=== PATIENT | male | born 1980 | race Caucasian/White ===

== ENCOUNTER 2020-04-16 13:50 | Emergency (ER) | payer OTHER, SELFPAY ==
[2020-04-16 13:55] VITALS: BP 138/88; PULSE 81; RESP 14; TEMP 36.6; O2SAT 98; BMI 28.7
[2020-04-16 14:34] LABS: COVID19 -Nasal RAPID Negative (Negative)
--- NOTE | 2020-04-16 15:17 | PC.NURSE ---
given verbal consent to room with spouse for evaluation by provider. Provider aware.
[2020-04-16 15:39] VITALS: BP 115/73; PULSE 74; RESP 16; O2SAT 98
--- NOTE | 2020-04-16 16:11 | ED.RECABL ---
HPI - Recheck/Abnormal Lab/Rx <SIMONA Strickland - Last Filed: 04/16/20 16:13> General Chief Complaint: Recheck/Abnormal Lab/Rx Stated Complaint: Poss Covid Exposure Time Seen by Provider: 04/16/20 15:15 Source: patient Mode of arrival: Ambulatory History of Present Illness HPI narrative: 40-year-old male presenting to the emergency department with his . His is here for shortness of breath and concerns of COVID-19. Patient currently works in the and needs to be tested if his is tested for COVID. His was tested for COVID today, and he is requesting a test. He denies any symptoms. Denies any fevers, chills, cough, shortness of breath, dizziness, chest pain, abdominal pain, nausea, vomiting, or any other concerns. Review of Systems <SIMONA Strickland - Last Filed: 04/16/20 16:13> Review of Systems Narrative: REVIEW OF SYSTEMS: GENERAL: Denies fevers. HENT: No head trauma or hearing loss. EYES: No loss of vision, double vision, eye pain, irritation or discharge. CARDIOVASCULAR: No chest pain or syncope. RESPIRATORY: No shortness of breath. GASTROINTESTINAL: No nausea, vomiting, diarrhea, or constipation. MUSCULOSKELETAL: No weakness or injury. INTEGUMENTARY: No rash, lesions, or pruritus. NEURO: No memory loss, or confusion. Patient History <SIMONA Strickland - Last Filed: 04/16/20 16:13> Medical History No significant medical problems (Acute) Social History Smoking Status: Never smoker Smoking Status: Never smoker alcohol intake frequency: 0-2 drinks per day Substance Use Type: does not use Exam <SIMONA Strickland - Last Filed: 04/16/20 16:13> Initial Vital Signs Initial Vital Signs: Vital Signs Temperature 97.8 F 04/16/20 13:55 Pulse Rate 81 04/16/20 13:55 Respiratory Rate 14 04/16/20 13:55 Blood Pressure 138/88 04/16/20 13:55 Pulse Oximetry 98 04/16/20 13:55 PHYSICAL EXAMINATION: GENERAL: Well groomed, alert, and cooperative. Answers questions promptly and appropriately. Vital signs noted. HENT: Normocephalic, atraumatic. Ear canals patent. EYES: Conjunctiva pink, sclera white, no periorbital swelling. No discharge. RESPIRATORY: Normal respiratory rate, trachea midline, airway patent. No stridor, nasal flaring or accessory muscle use. No cough observed. MUSCULOSKELETAL: Normal gait and coordination. Equal tone and mass bilaterally. EXTREMITIES: Moves all extremities. SKIN: Warm, dry, soft, appropriate color for ethnicity. No lesions, rashes, or wounds to visualized areas. NEURO: Alert and Oriented X 3. Good coordination. No ataxia or cognitive issues. PSYCH: Appropriate affect and mood. <Artur Mcnair DO - Last Filed: 04/16/20 16:20> Initial Vital Signs Initial Vital Signs: Vital Signs Temperature 97.8 F 04/16/20 13:55 Pulse Rate 81 04/16/20 13:55 Respiratory Rate 14 04/16/20 13:55 Blood Pressure 138/88 04/16/20 13:55 Pulse Oximetry 98 04/16/20 13:55 Course <SIMONA Strickland - Last Filed: 04/16/20 16:13> Orders Ordered: ED Orders 04/16/20 14:10 COVID19 -ED/INPAT/OR/L&D Stat Vital Signs Vital signs: Vital Signs - 8 hr 04/16/20 13:55 04/16/20 15:39 Temperature 97.8 F Pulse Rate 81 74 Respiratory Rate 14 16 Blood Pressure 138/88 115/73 Pulse Oximetry 98 98 <Artur Mcnair DO - Last Filed: 04/16/20 16:20> Orders Ordered: ED Orders 04/16/20 14:10 COVID19 -ED/INPAT/OR/L&D Stat Vital Signs Vital signs: Vital Signs - 8 hr 04/16/20 13:55 04/16/20 15:39 Temperature 97.8 F Pulse Rate 81 74 Respiratory Rate 14 16 Blood Pressure 138/88 115/73 Pulse Oximetry 98 98 MDM - Recheck/Abnormal Lab/Rx <SIMONA Strickland - Last Filed: 04/16/20 16:13> Medical Records Attestation: I reviewed the patient's medical records. Lab Data Attestation: I reviewed the patient's lab results. Labs: Lab Results 04/16/20 Range/Units 14:10 COVID-19 PCR Negative (Negative) MDM Narrative Medical decision making narrative: A healthy non symptomatic 40-year-old male here for COVID testing. COVID is negative. No concerns for other disease etiology. Return precautions given for new or worsening symptoms, he agreed to plan of care verbalized understanding. <Artur Mcnair DO - Last Filed: 04/16/20 16:20> Lab Data Labs: Lab Results 04/16/20 Range/Units 14:10 COVID-19 PCR Negative (Negative) Discharge Plan Departure Patient Disposition: Home Clinical Impression: Encounter for laboratory testing for COVID-19 virus Discharge Date/Time: 04/16/20 15:40 Activity Restrictions/Additional Instructions: Thank you for entrusting me with your care today. As discussed, your COVID test is negative. Please follow-up with PCP for any new or concerning symptoms. Return emergency department for any other concerns. <DO Vibha Aburto Filed: 04/16/20 16:20> Cosign ED Attending Cosignature Attestation: Dr Mcnair Co-Sign Statement: I was available for consultation during this patient's emergency department visit. This chart is signed by myself for administrative purposes only. I did not have direct contact with this patient during this visit. They were seen independently by the APC.
== END 2020-04-16 15:40 | disposition home or self-care (01) ==
PROVIDERS: Emergency Medicine; Emergency Provider Nurse Practitioner
DX: Z03.818 Encounter for observation for suspected exposure to other biological agents ruled out (principal); R06.02 Shortness of breath
CPT/HCPCS: 87635; 99281; 99282

== ENCOUNTER → 2020-07-10 08:51 | Outpatient (CLI) | payer OTHER, SELFPAY ==
[2020-07-10 10:59] LABS: COVID19 -Nasal RAPID Negative (Negative)
== END ==
PROVIDERS: Visit Provider Family Medicine Sleep Medicine
DX: Z20.822 Contact with and (suspected) exposure to COVID-19 (principal)
CPT/HCPCS: 87635; C9803

== ENCOUNTER → 2020-08-01 08:31 | Outpatient (CLI) | payer OTHER, SELFPAY ==
[2020-08-01 11:03] LABS: COVID19 -Nasal RAPID Negative (Negative)
== END ==
PROVIDERS: Visit Provider Family Medicine Sleep Medicine
DX: Z20.822 Contact with and (suspected) exposure to COVID-19 (principal); G47.33 Obstructive sleep apnea (adult) (pediatric)
CPT/HCPCS: 87635; 95810

== ENCOUNTER → 2020-09-12 08:30 | Outpatient (CLI) | payer OTHER, SELFPAY ==
[2020-09-12 09:49] LABS: COVID19 -Nasal RAPID Negative (Negative)
== END ==
PROVIDERS: Visit Provider Family Medicine Sleep Medicine
DX: Z20.822 Contact with and (suspected) exposure to COVID-19 (principal); G47.33 Obstructive sleep apnea (adult) (pediatric); G47.12 Idiopathic hypersomnia without long sleep time; R53.83 Other fatigue; G47.9 Sleep disorder, unspecified; R06.83 Snoring
CPT/HCPCS: 87635; 95811